=== PATIENT | male | born 1975 | race African-American/Black ===

== ENCOUNTER 2020-01-11 14:30 | Inpatient (IN) | payer MEDICARE, MEDICAID ==
[~2020-01-11] VITALS: Ht 193 cm; Wt 90.3 kg
[2020-01-11] MEDS ORDERED: VISCOUS LIDOCAINE 2% 15 ML UDC PO STA (15:41)
[2020-01-11] MEDS ORDERED: ONDANSETRON 4MG ODT PO STA (15:41)
[2020-01-11] MEDS ORDERED: MAGNESIUM/ALUMINUM HYDROXIDE/SIMETHICONE 30ML UDC PO STA (15:41)
[2020-01-11 16:22] LABS: CHLORIDE 101 mEq/L (98-107)
[2020-01-11 16:24] LABS: BASOPHILS % 0.6 % (0.0-2.0); EOSINOPHILS % 1.3 % (0.0-5.0); HEMATOCRIT. 39.3 % (42.0-52.0); HEMOGLOBIN. 12.7 g/dL (14.0-18.0); LYMPHOCYTES % 13.8 % (20.0-50.0); MEAN CORPUSCULAR HEMOGLOBIN 26.1 pg (28.0-32.0); MEAN CORPUSCULAR VOLUME 80.7 fL (80.0-94.0); MEAN PLATELET VOLUME 9.3 fl (7.4-10.4); MONOCYTES % 11.7 % (2.0-8.0); NEUTROPHILS % 72.6 % (40.0-76.0); PLATELET 420 x1000/uL (130-400); RED BLOOD CELL COUNT 4.87 mill/uL (4.7-6.1); RED CELL DISTRIBUTION WIDTH 15.5 % (11.6-14.6)
[2020-01-11 16:26] LABS: INR 1.1; PROTHROMBIN TIME 11.9 sec (9.6-11.0)
[2020-01-11] MEDS ORDERED: IOHEXOL-300 100 ML BOTTLE ONE (22:23)
[2020-01-11 23:49] LABS: CLARITY URINE CLEAR (CLEAR); COLOR URINE DARK YELLOW (YELLOW); KETONES URINE 3+ (NEGATIVE); LEUKOCYTE ESTERASE URINE NEGATIVE (NEGATIVE); NITRITE URINE NEGATIVE (NEGATIVE); OCCULT BLOOD URINE NEGATIVE (NEGATIVE); PH URINE 5.5 (4.5-8.0); PROTEIN URINE 1+ (NEGATIVE); SPECIFIC GRAVITY URINE 1.093 (1.005-1.030)
[2020-01-12] MEDS ORDERED: ONDANSETRON HCL 4MG/2ML INJ IV NR (00:13)
[2020-01-12] MEDS ORDERED: MORPHINE SULFATE 4 MG/ML CPJ (NOT FOR IM USE) IV NR (00:13)
[2020-01-12] MEDS ORDERED: SODIUM CHLORIDE 0.9% 1,000 ML IV NR (00:20)
[2020-01-12] MEDS ORDERED: AZITHROMYCIN 500 MG in DEXT 5% WATER 250 ML IV ONE (00:30)
[2020-01-12] MEDS ORDERED: CEFTRIAXONE 1 G PREMIX 50 ML IV ONE (00:30)
[2020-01-12 12:00] VITALS: BP 112/68
[2020-01-12 13:41] VITALS: BP 121/89
[2020-01-12] MEDS ORDERED: DICY10CA88 PO (14:05)
[2020-01-12] MEDS ORDERED: CYCL25PO21 MT (14:05)
[2020-01-12] MEDS ORDERED: OMEP40CA12 PO (14:05)
[2020-01-12 16:00] VITALS: BP 114/69
[2020-01-12] MEDS ORDERED: ACETAMINOPHEN 325MG TABLET PO PRN (17:00)
[2020-01-12] MEDS: SODIUM CHLORIDE 0.9% 1,000 ML IV SCH ×2 (17:00→21:12)
[2020-01-12] MEDS ORDERED: ONDANSETRON HCL 4MG/2ML INJ IV PRN (17:00)
[2020-01-12] MEDS ORDERED: ENOXAPARIN 40MG/0.4ML SYR SUBCUT SCH (18:00)
[2020-01-12] MEDS: PANTOPRAZOLE SODIUM 40 MG/VIAL IV SCH (18:56)
[2020-01-12 20:00] VITALS: BP 120/76
[2020-01-12] MEDS: AZITHROMYCIN 500 MG in DEXT 5% WATER 250 ML IV SCH (21:11)
[2020-01-12] MEDS: CEFTRIAXONE 1,000 MG in DEXTROSE 5% WATER 50 ML IV SCH (21:12)
[2020-01-12] MEDS: METRONIDAZOLE 500 MG PREMIX 100 ML IV SCH (23:44)
[2020-01-13] VITALS: BP 114/76
[2020-01-13] MEDS ORDERED: CEFTRIAXONE 1 G PREMIX 50 ML IV SCH (01:00)
[2020-01-13 04:00] VITALS: BP 124/59
[2020-01-13 05:51] LABS: EOSINOPHILS % 2.6 % (0.0-5.0); HEMATOCRIT. 34.3 % (42.0-52.0); HEMOGLOBIN. 11.1 g/dL (14.0-18.0); LYMPHOCYTES % 18.8 % (20.0-50.0); MEAN CORPUSCULAR HEMOGLOBIN 26.1 pg (28.0-32.0); MEAN CORPUSCULAR VOLUME 80.8 fL (80.0-94.0); MEAN PLATELET VOLUME 8.9 fl (7.4-10.4); MONOCYTES % 13.5 % (2.0-8.0); NEUTROPHILS % 64.1 % (40.0-76.0); PLATELET 368 x1000/uL (130-400); RED BLOOD CELL COUNT 4.24 mill/uL (4.7-6.1); RED CELL DISTRIBUTION WIDTH 15.2 % (11.6-14.6)
[2020-01-13] MEDS: METRONIDAZOLE 500 MG PREMIX 100 ML IV SCH ×3 (05:58→20:27)
[2020-01-13 06:01] LABS: CHLORIDE 102 mEq/L (98-107)
[2020-01-13 08:00] VITALS: BP 105/63
[2020-01-13] MEDS: PANTOPRAZOLE SODIUM 40 MG/VIAL IV SCH (09:52)
[2020-01-13 12:00] VITALS: BP 121/76
[2020-01-13] MEDS ORDERED: INFLUENZA VACCINE 05/PF 0.5 ML VIAL IM ONE (12:15)
[2020-01-13] MEDS: SODIUM CHLORIDE 0.9% 1,000 ML IV SCH (13:16)
[2020-01-13 16:00] VITALS: BP 117/74
[2020-01-13 20:00] VITALS: BP 112/79
[2020-01-13] MEDS: CEFTRIAXONE 1,000 MG in DEXTROSE 5% WATER 50 ML IV SCH (20:27)
[2020-01-13] MEDS: DEXT 5%/0.9% NACL 1,000 ML IV SCH (20:27)
[2020-01-13] MEDS: AZITHROMYCIN 500 MG in DEXT 5% WATER 250 ML IV SCH (20:27)
[2020-01-14] MEDS: METRONIDAZOLE 500 MG PREMIX 100 ML IV SCH ×4 (00:07→23:42)
[2020-01-14 00:19] VITALS: BP 119/74
[2020-01-14 04:00] VITALS: BP 106/67
[2020-01-14] MEDS: DEXT 5%/0.9% NACL 1,000 ML IV SCH ×3 (05:15→23:42)
[2020-01-14 07:25] LABS: CHLORIDE 106 mEq/L (98-107)
[2020-01-14 07:45] LABS: BASOPHILS % 0.5 % (0.0-2.0); EOSINOPHILS % 2.1 % (0.0-5.0); HEMATOCRIT. 34.5 % (42.0-52.0); HEMOGLOBIN. 11.1 g/dL (14.0-18.0); LYMPHOCYTES % 16.6 % (20.0-50.0); MEAN CORPUSCULAR HEMOGLOBIN 26.3 pg (28.0-32.0); MEAN CORPUSCULAR VOLUME 81.4 fL (80.0-94.0); NEUTROPHILS % 66.8 % (40.0-76.0); PLATELET 341 x1000/uL (130-400); RED BLOOD CELL COUNT 4.24 mill/uL (4.7-6.1); RED CELL DISTRIBUTION WIDTH 14.9 % (11.6-14.6)
[2020-01-14 08:00] VITALS: BP 114/78
[2020-01-14] MEDS: PANTOPRAZOLE SODIUM 40 MG/VIAL IV SCH (09:19)
[2020-01-14 12:00] VITALS: BP 117/78
[2020-01-14] MEDS ORDERED: BARIUM SULFATE(VOLUMEN) 450 ML ORAL.SUSP ONE (14:09)
[2020-01-14 16:00] VITALS: BP 117/74
[2020-01-14 20:00] VITALS: BP 123/78
[2020-01-14] MEDS: CEFTRIAXONE 1,000 MG in DEXTROSE 5% WATER 50 ML IV SCH (20:23)
[2020-01-14] MEDS: AZITHROMYCIN 500 MG in DEXT 5% WATER 250 ML IV SCH (22:20)
[2020-01-15] VITALS: BP 120/77
[2020-01-15] MEDS: DEXT 5%/0.9% NACL 1,000 ML IV SCH ×4 (03:45→22:59)
[2020-01-15 04:00] VITALS: BP 107/71
[2020-01-15] MEDS: METRONIDAZOLE 500 MG PREMIX 100 ML IV SCH ×3 (05:57→22:32)
[2020-01-15 07:00] LABS: BASOPHILS % 0.9 % (0.0-2.0); EOSINOPHILS % 2.9 % (0.0-5.0); HEMATOCRIT. 33.9 % (42.0-52.0); HEMOGLOBIN. 11.3 g/dL (14.0-18.0); MEAN CORPUSCULAR HEMOGLOBIN 26.8 pg (28.0-32.0); MEAN CORPUSCULAR VOLUME 80.5 fL (80.0-94.0); MONOCYTES % 11.4 % (2.0-8.0); NEUTROPHILS % 66.8 % (40.0-76.0); PLATELET 350 x1000/uL (130-400); RED BLOOD CELL COUNT 4.21 mill/uL (4.7-6.1); RED CELL DISTRIBUTION WIDTH 15.2 % (11.6-14.6)
[2020-01-15 07:08] LABS: CHLORIDE 105 mEq/L (98-107)
[2020-01-15 07:14] LABS: TOTAL IRON BINDING CAPACITY 189 ug/dL (250-450)
[2020-01-15 07:34] LABS: FOLIC ACID (FOLATE) SERUM 12.6 ng/mL (>5.38)
[2020-01-15] MEDS: PANTOPRAZOLE SODIUM 40 MG/VIAL IV SCH (09:14)
[2020-01-15] MEDS ORDERED: DIATR MEGLU/DIATRIZOATE SOLN 120ML ONE (10:49)
[2020-01-15 19:00] VITALS: BP 119/74
[2020-01-15] MEDS: CEFTRIAXONE 1,000 MG in DEXTROSE 5% WATER 50 ML IV SCH (19:43)
[2020-01-15 20:46] VITALS: BP 103/82
[2020-01-15] MEDS: AZITHROMYCIN 500 MG in DEXT 5% WATER 250 ML IV SCH (21:08)
[2020-01-16] VITALS: BP 111/78
[2020-01-16 04:00] VITALS: BP 112/76
[2020-01-16] MEDS: METRONIDAZOLE 500 MG PREMIX 100 ML IV SCH ×2 (05:52→14:54)
[2020-01-16] MEDS: DEXT 5%/0.9% NACL 1,000 ML IV SCH (05:53)
[2020-01-16 08:00] VITALS: BP 112/69
[2020-01-16 09:22] LABS: HEMATOCRIT. 38.5 % (42.0-52.0); HEMOGLOBIN. 12.5 g/dL (14.0-18.0); MEAN CORPUSCULAR HEMOGLOBIN 26.4 pg (28.0-32.0); MEAN CORPUSCULAR VOLUME 81.4 fL (80.0-94.0); MEAN PLATELET VOLUME 8.6 fl (7.4-10.4); PLATELET 398 x1000/uL (130-400); RED BLOOD CELL COUNT 4.73 mill/uL (4.7-6.1); RED CELL DISTRIBUTION WIDTH 15.5 % (11.6-14.6)
[2020-01-16] MEDS: PANTOPRAZOLE SODIUM 40 MG/VIAL IV SCH (09:35)
[2020-01-16 09:52] LABS: CHLORIDE 109 mEq/L (98-107)
[2020-01-16 12:00] VITALS: BP 132/63
[2020-01-16 14:24] LABS: PLATELET ESTIMATE NORMAL
[2020-01-16 16:00] VITALS: BP 102/65
[2020-01-16 17:57] VITALS: BP 102/65
[2020-01-18 09:12] LABS: SACCHAROMYCES CEREVISIAE IGG 72.1 Units (0.0-24.9); SACCHAROMYCES CEREVISIAE IGM 46.8 Units (0.0-24.9)
[2020-01-18 13:11] LABS: ANTI-MYELOPEROXIDASE AB < 9.0 U/mL (0.0-9.0); ANTI-PROTEINASE 3 ABS < 3.5 U/mL (0.0-3.5); ATYPICAL P-ANCA <1:20 titer (Neg:<1:20); ATYPICAL pANCA <1:20 titer (Neg:<1:20); CYTOPLASMIC C-ANCA <1:20 titer (Neg:<1:20); PERINUCLEAR P-ANCA <1:20 titer (Neg:<1:20)
== END 2020-01-16 18:30 | disposition home or self-care (01) | DRG 193 ==
LOC: ER 14:30 → 7WST 01-12 01:26 → ENRESERV 01-12 10:37 → 6WST 01-13 21:15
PROVIDERS: ADMIT Internal Medicine; ATTEND Internal Medicine
DX: J18.9 Pneumonia, unspecified organism (principal); J96.00 Acute respiratory failure, unspecified whether with hypoxia or hypercapnia; I50.20 Unspecified systolic (congestive) heart failure; K56.600 Partial intestinal obstruction, unspecified as to cause; I47.2 Ventricular tachycardia; K57.32 Diverticulitis of large intestine without perforation or abscess without bleeding; K80.20 Calculus of gallbladder without cholecystitis without obstruction; M48.061 Spinal stenosis, lumbar region without neurogenic claudication; D64.9 Anemia, unspecified; E11.9 Type 2 diabetes mellitus without complications; E88.09 Other disorders of plasma-protein metabolism, not elsewhere classified; I27.20 Pulmonary hypertension, unspecified; K29.70 Gastritis, unspecified, without bleeding; F17.200 Nicotine dependence, unspecified, uncomplicated; K21.9 Gastro-esophageal reflux disease without esophagitis; K44.9 Diaphragmatic hernia without obstruction or gangrene; R74.01 Elevation of levels of liver transaminase levels; R11.2 Nausea with vomiting, unspecified; Z20.828 Contact with and (suspected) exposure to other viral communicable diseases; K52.9 Noninfective gastroenteritis and colitis, unspecified; Z79.02 Long term (current) use of antithrombotics/antiplatelets; Z79.899 Other long term (current) drug therapy
CPT/HCPCS: 36415; 71045; 74018; 74177; 74250; 80048; 80053; 81003; 82607; 82705; 82728; 82746; 83520; 83540; 83550; 83605; 84450; 85025; 85044; 85651; 86140; 86256; 86671; 87015; 87045; 87177; 87209; 87426; 87427; 87449; 87635; 89055; 90686; 93005; 93306; 99285; C9113; J0456; J0696; J2270; J2405; J3490; J7030; J7042; J7060; Q0162; Q9963; Q9967